=== PATIENT | female | born 1965 | race Caucasian/White ===

== ENCOUNTER 2017-11-05 00:11 | Emergency (ER) | payer SELFPAY ==
--- NOTE | 2017-11-05 00:34 | ED Physician Documentation ---
History of Present Illness - Stated complaint Stated Complaint: L/R LEG REDNESS - Chief complaint Chief Complaint: Wound - History obtained from History obtained from: Patient - History of Present Illness Timing: Yesterday Pain level now: 4 Improved by: pain, swelling ameliorated by rest, elevating legs Worsened by: pain and swelling are worse with standing - Additonal information Additional information: c/o BLE rash since yesterday, significantly worse on LLE. there is associated swelling, and the rash is painful. She says she has had similar, milder episodes in the past which she says were "prickly heat". Review of Systems Constitutional: denies: Fever, Chills, Sweats Skin: reports: Rash Musculoskeletal: reports: Extremity swelling PD PAST MEDICAL HISTORY - Past Medical History Past Medical History: Yes Respiratory: Asthma - Past Surgical History Past Surgical History: No - Present Medications Home Medications: Ambulatory Orders Medication Instructions Recorded Confirmed Albuterol [Ventolin Hfa] 2 puffs INH Q4H PRN 08/26/13 08/26/13 Budesonide/Formoterol 160/4.5 1 puffs INH BID 08/26/13 08/26/13 [Symbicort] Budesonide/Formoterol Fumarate 2 puffs IH BID #1 hfa.aer.ad 08/26/13 [Symbicort 160-4.5 Mcg Inhaler] predniSONE [Deltasone] 60 mg PO DAILY 5 Days tablet 08/26/13 Clindamycin HCl [Clindamycin 300MG 300 mg PO QID #27 capsule 11/05/17 CAP] - Allergies Allergies/Adverse Reactions: Allergies Allergy/AdvReac Type Severity Reaction Status Date / Time Penicillins AdvReac Unknown Verified 11/05/17 00:21 - Social History Does the pt smoke?: No Smoking Status: Never smoker Does the pt drink ETOH?: No Does the pt have substance abuse?: No - Immunizations Immunizations are current?: Yes - POLST Patient has POLST: No PD ED PE NORMAL - Vitals Vital signs reviewed: Yes - General General: Alert and oriented X 3, No acute distress, Well developed/nourished PD ED PE EXPANDED - Extremities ROBERTO LE visual: 1 - rash (maulopapular erythema with large areas of confluence; hot to touch, swelling, blanches to pressure), swelling 2 - rash (patchy, flat erythematous exanthem without abnormal heat to touch, does not ton) Results - Vitals Vitals: Vital Signs - 24 hr 11/05/17 11/05/17 00:14 01:09 Temperature 36.3 C L Heart Rate 95 82 Respiratory 18 16 Rate Blood Pressure 112/40 L 132/94 H O2 Saturation 100 95 Oxygen O2 Source Room air PD MEDICAL DECISION MAKING - ED course Complexity details: considered differential, d/w patient ED course: exanthem s/o miliaria although hot and confluent area on LLE concerning for secondary cellulitis and thus rx abx. to cover possible bacterial cellulitis - Sepsis Event Vital Signs: Vital Signs - 24 hr 11/05/17 11/05/17 00:14 01:09 Temperature 36.3 C L Heart Rate 95 82 Respiratory 18 16 Rate Blood Pressure 112/40 L 132/94 H O2 Saturation 100 95 Oxygen O2 Source Room air Departure - Departure Disposition: 01 Home, Self Care Clinical Impression: Cellulitis, Miliaria Condition: Good Instructions: ED Infec Skin Cellulitis, ED Dermatitis Non Specific Rash Prescriptions: Clindamycin HCl [Clindamycin 300MG CAP] 300 mg PO QID #27 capsule Forms: Activity restrictions Discharge Date/Time: 11/05/17 01:15
[2017-11-05] MEDS ORDERED: CLINDAMYCIN 150 MG CAPSULE PO STA (00:58)
[2017-11-05 01:13] VITALS: BP 132/94
== END 2017-11-05 01:15 | disposition home or self-care (01) ==
LOC: ED 00:11
DX: L74.3 Miliaria, unspecified (principal); L03.116 Cellulitis of left lower limb
CPT/HCPCS: 99283; A9270

== ENCOUNTER 2018-03-30 00:19 | Emergency (ER) | payer SELFPAY ==
--- NOTE | 2018-03-30 00:51 | ED Physician Documentation ---
PD HPI SKIN - Stated complaint Stated Complaint: LT LEG REDNESS - Chief complaint Chief Complaint: Ext Problem - History obtained from History obtained from: Patient - History of Present Illness Timing - onset: Yesterday Timing - details: Gradual onset Pain level now: 4 Location: LLE Quality / character: Burning, Discolored, Raised Associated symptoms: No: Fever Similar symptoms before: Diagnosis (similar to previous cellulitis (which resolved with clindamycin)) Recently seen: Not recently seen - Additional information Additional information: c/o gradual onset LLE redness and swelling without injury, has been rapidly spreading in size. similar episode in the past that was diagnosed as cellulitis and resolved with clindamycin Review of Systems Constitutional: denies: Fever Cardiac: denies: Chest pain / pressure, Pedal edema Respiratory: denies: Dyspnea Skin: reports: Rash PD PAST MEDICAL HISTORY - Past Medical History Respiratory: Asthma - Past Surgical History Past Surgical History: No - Present Medications Home Medications: Ambulatory Orders Medication Instructions Recorded Confirmed Albuterol [Ventolin Hfa] 2 puffs INH Q4H PRN 08/26/13 08/26/13 Budesonide/Formoterol 160/4.5 1 puffs INH BID 08/26/13 08/26/13 [Symbicort] Budesonide/Formoterol Fumarate 2 puffs IH BID #1 hfa.aer.ad 08/26/13 [Symbicort 160-4.5 Mcg Inhaler] predniSONE [Deltasone] 60 mg PO DAILY 5 Days tablet 08/26/13 Clindamycin HCl [Clindamycin 300MG 300 mg PO QID #27 capsule 11/05/17 CAP] Clindamycin HCl [Clindamycin 300MG 300 mg PO Q6H #28 capsule 03/30/18 CAP] - Allergies Allergies/Adverse Reactions: Allergies Allergy/AdvReac Type Severity Reaction Status Date / Time Penicillins AdvReac Unknown Verified 03/30/18 00:30 - Social History Does the pt smoke?: No Smoking Status: Never smoker Does the pt drink ETOH?: No Does the pt have substance abuse?: No - Immunizations Immunizations are current?: Yes - POLST Patient has POLST: No PD ED PE NORMAL - Vitals Vital signs reviewed: Yes - General General: Alert and oriented X 3, No acute distress, Well developed/nourished PD ED PE EXPANDED - Extremities ROBERTO LE visual: 1 - rash (confluent, raised erythema with sharp margins, blanches and is hot to touch) 2 - rash (raised, erythematous rash with sharp margins; this is contiguous with the other area labelled "1") Results - Vitals Vitals: Vital Signs - 24 hr 03/30/18 03/30/18 00:28 01:01 Temperature 36.8 C Heart Rate 89 Respiratory 17 Rate Blood Pressure 148/104 H 150/93 H O2 Saturation 100 Oxygen O2 Source Room air PD MEDICAL DECISION MAKING - ED course Complexity details: reviewed old records, considered differential, d/w patient Departure - Departure Disposition: 01 Home, Self Care Clinical Impression: Cellulitis Qualifiers: Site of cellulitis: extremity Site of cellulitis of extremity: lower extremity Laterality: left Qualified Code(s): L03.116 - Cellulitis of left lower limb Condition: Good Instructions: ED Infec Skin Cellulitis Follow-Up: [facility] [Provider Group] - Within 1 week [facility] [Provider Group] Prescriptions: Clindamycin HCl [Clindamycin 300MG CAP] 300 mg PO Q6H #28 capsule Discharge Date/Time: 03/30/18 01:05
[2018-03-30] MEDS ORDERED: CLINDAMYCIN 150 MG CAPSULE PO STA (00:56)
[2018-03-30 01:02] VITALS: BP 150/93
== END 2018-03-30 01:05 | disposition home or self-care (01) ==
LOC: ED 00:19
DX: L03.116 Cellulitis of left lower limb (principal)
CPT/HCPCS: 99283; A9270

== ENCOUNTER 2018-05-19 01:25 | Emergency (ER) | payer OTHER ==
--- NOTE | 2018-05-19 01:30 | ED Physician Documentation ---
History of Present Illness - Stated complaint Stated Complaint: LT LEG REDNESS,SWELLING - History obtained from History obtained from: Patient - History of Present Illness Timing: Other ("about a year" (per patient)) Pain level now: 5 Improved by: no ameliorating factors Worsened by: no exacerbating factors, but tender to touch - Additonal information Additional information: c/o left leg erythema, swelling, tenderness. She says this has been ongoing for nearly one year, and this is her third [facility] ED visit in past 7 months for same; however, she says there was improvement with antibiotics that were prescribed on previous visits. She has not seen a doctor (besides ED physicians) for this, citing lack of insurance. However, she says she just got her insurance card yesterday and intends to start making arrangements to establish with an outpatient PMD in the morning. 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 : None HEENT: None Psych: None Musculoskeletal: None Derm: None - Past Surgical History Past Surgical History: No - Present Medications Home Medications: Ambulatory Orders Medication Instructions Recorded Confirmed Albuterol [Ventolin Hfa] 2 puffs INH Q4H PRN 08/26/13 08/26/13 Budesonide/Formoterol 160/4.5 1 puffs INH BID 08/26/13 08/26/13 [Symbicort] Budesonide/Formoterol Fumarate 2 puffs IH BID #1 hfa.aer.ad 08/26/13 [Symbicort 160-4.5 Mcg Inhaler] predniSONE [Deltasone] 60 mg PO DAILY 5 Days tablet 08/26/13 Clindamycin HCl [Clindamycin 300MG 300 mg PO QID #27 capsule 11/05/17 CAP] Clindamycin HCl [Clindamycin 300MG 300 mg PO Q6H #28 capsule 03/30/18 CAP] Cephalexin [Keflex] 500 mg PO Q6H #28 capsule 05/19/18 Sulfamethox/Trimeth 800/160 1 each PO BID #14 tablet 05/19/18 [Bactrim Ds 800/160] - Allergies Allergies/Adverse Reactions: Allergies Allergy/AdvReac Type Severity Reaction Status Date / Time Penicillins AdvReac Unknown Verified 05/19/18 01:32 - Social History Does the pt smoke?: No Smoking Status: Never smoker Does the pt drink ETOH?: No Does the pt have substance abuse?: No - Immunizations Immunizations are current?: Yes - POLST Patient has POLST: No PD ED PE NORMAL - Vitals Vital signs reviewed: Yes - General General: Alert and oriented X 3, No acute distress, Well developed/nourished PD ED PE EXPANDED - Extremities ROBERTO LE visual: 1 - rash, swelling, tenderness Results - Vitals Vitals: Vital Signs - 24 hr 05/19/18 05/19/18 01:29 03:35 Temperature 36.0 C L Heart Rate 102 H 96 Respiratory 20 20 Rate Blood Pressure 154/96 H 147/88 H O2 Saturation 99 100 Oxygen O2 Source Room air - Rads (name of study) LLE venous doppler Radiology: Prelim report reviewed, See rad report PD MEDICAL DECISION MAKING - ED course Complexity details: reviewed old records, reviewed results, re-evaluated patient, considered differential, d/w patient Departure - Departure Disposition: 01 Home, Self Care Clinical Impression: Cellulitis Condition: Good Instructions: ED Infec Skin Cellulitis Follow-Up: [facility] [Provider Group] [facility] [Provider Group] Prescriptions: Cephalexin [Keflex] 500 mg PO Q6H #28 capsule Sulfamethox/Trimeth 800/160 [Bactrim Ds 800/160] 1 each PO BID #14 tablet Discharge Date/Time: 05/19/18 03:36
--- NOTE | 2018-05-19 02:59 | Ultrasound Report ---
Reason: pain, swelling Procedure Date: 05/19/2018 Accession Number: [id number] / [id number] Procedure: US - Duplex Ext Veins Left CPT Code: FULL RESULT: EXAM: LEFT LOWER EXTREMITY VENOUS ULTRASOUND EXAM DATE: 05/19/2018 02:02 AM. CLINICAL HISTORY: Left leg pain, swelling. COMPARISON: None. TECHNIQUE: Real-time sonographic vascular imaging was performed by the staff air tactical officer through the lower extremity utilizing both color-flow and Doppler spectral analysis. Multiple promotions representative static images were saved for review. FINDINGS: Common Femoral Vein (CFV): Normal. CFV-GSV Junction: Normal. Profunda Femoral Vein (PFV): Normal. Femoral Vein (FV) Prox: Normal. Femoral Vein (FV) Mid: Normal. Femoral Vein (FV) Dist: Normal. Popliteal Vein: Normal. Posterior Tibial Veins: Normal. Peroneal Veins: Normal. Contralateral Right CFV: Normal. Other: Approximately 4 x 1 x 3 cm fluid collection at the left anterolateral knee. No surrounding hyperemia. IMPRESSION: 1. No left leg deep venous thrombosis seen. 2. Approximately 4 x 1 x 3 cm fluid collection at the left anterolateral knee. This is of uncertain significance but does not appear to be an abscess. RADIA
[2018-05-19] MEDS ORDERED: cephALEXin 250 MG CAPSULE PO STA (03:24)
[2018-05-19] MEDS ORDERED: SULFAMETH/TRIMETH DS 800/160 MG TABLET PO STA (03:25)
[2018-05-19 03:36] VITALS: BP 147/88
== END 2018-05-19 03:36 | disposition home or self-care (01) ==
LOC: ED 01:25
DX: L03.116 Cellulitis of left lower limb (principal)
CPT/HCPCS: 93971; 99283; A9270

== ENCOUNTER 2020-02-29 08:00 | Outpatient (CLI) | payer MEDICAID, OTHER ==
[2020-02-29 12:28] LABS: BASOPHILS # (AUTO) 0.1 10^3/uL (0.0-0.1); BASOPHILS % (AUTO) 1.7 %; EOSINOPHILS # (AUTO) 0.5 10^3/uL (0.0-0.7); EOSINOPHILS % (AUTO) 8.3 %; HGB - HEMOGLOBIN 12.7 g/dL (12.0-16.0); LYMPHOCYTES # (AUTO) 1.7 10^3/uL (1.5-3.5); LYMPHOCYTES % (AUTO) 27.1 %; MEAN CORPUSCULAR HEMOGLOBIN 25.6 pg (27.0-31.0); MEAN CORPUSCULAR HGB CONC 31.4 g/dL (32.0-36.0); MEAN CORPUSCULAR VOLUME 81.7 fL (81.0-99.0); MEAN PLATELET VOLUME 9.8 fL (7.9-10.8); MONOCYTES # (AUTO) 0.4 10^3/uL (0.0-1.0); MONOCYTES % (AUTO) 5.5 %; NEUTROPHILS # (AUTO) 3.7 10^3/uL (1.5-6.6); NEUTROPHILS % (AUTO) 57.1 %; PLT - PLATELET COUNT 494 10^3/uL (130-450); RED BLOOD COUNT 4.96 10^6/uL (4.20-5.40); RED CELL DISTRIBUTION WIDTH 14.6 % (12.0-15.0); WHITE BLOOD COUNT 6.4 x10^3/uL (4.8-10.8)
[2020-02-29 13:17] LABS: ALBUMIN 4.1 g/dL (3.2-5.5); ALKALINE PHOSPHATASE 122 IU/L (42-121); ALT ALANINE AMINOTRANSFERASE 15 IU/L (10-60); AST ASPARTATE AMINOTRANSFERASE 16 IU/L (10-42); BILIRUBIN,TOTAL 0.3 mg/dL (0.2-1.0); BUN - BLOOD UREA NITROGEN 16 mg/dL (6-20); CALCIUM 9.4 mg/dL (8.5-10.3); CARBON DIOXIDE - CO2 26 mmol/L (21-32); CHLORIDE 97 mmol/L (101-111); CHOL/HDL RATIO 3.3 (<4.4); CHOLESTEROL 243 mg/dL; CREATININE 0.8 mg/dL (0.4-1.0); GLUCOSE 79 mg/dL (70-100); HDL CHOLESTEROL 73 mg/dL; LDL CHOLESTEROL,CALCULATED 159 mg/dL; LDL/HDL RATIO 2.2 (<4.4); SODIUM 134 mmol/L (135-145); TOTAL PROTEIN 8.1 g/dL (6.7-8.2); VLDL CHOLESTEROL 11 mg/dL
== END 2020-02-29 23:59 | disposition home or self-care (01) ==
LOC: LAB.WCP 08:00
PROVIDERS: ATTEND Nurse Practitioner Family
DX: I10 Essential (primary) hypertension (principal); L03.90 Cellulitis, unspecified; J44.9 Chronic obstructive pulmonary disease, unspecified
CPT/HCPCS: 36415; 80053; 80061; 83721; 84443; 85025

== ENCOUNTER 2020-08-01 09:18 | Outpatient (CLI) | payer MEDICAID | END 2020-08-01 09:19 | disposition critical access hospital (66) | LOC: EMS 09:18 | PROVIDERS: ATTEND Emergency Medicine | DX: R06.2 Wheezing (principal); R05 Cough | CPT/HCPCS: A0425; A0429; A0999 ==

== ENCOUNTER 2020-08-01 09:36 | Emergency (ER) | payer MEDICAID ==
[2020-08-01] MEDS ORDERED: IPRATROPIUM/ALBUTEROL 3 ML NEB INH STA (09:40)
[2020-08-01] MEDS ORDERED: ALBUTEROL NEB 2.5 MG/3 ML INH STA (09:40)
[2020-08-01] MEDS ORDERED: DEXAMETHASONE 10 MG/ML VIAL IV STA (09:40)
[2020-08-01 09:56] LABS: BASOPHILS # (AUTO) 0.1 10^3/uL (0.0-0.1); BASOPHILS % (AUTO) 1.4 %; EOSINOPHILS % (AUTO) 10.5 %; HCT - HEMATOCRIT 47.1 % (37.0-47.0); HGB - HEMOGLOBIN 14.5 g/dL (12.0-16.0); LYMPHOCYTES # (AUTO) 1.6 10^3/uL (1.5-3.5); LYMPHOCYTES % (AUTO) 17.3 %; MEAN CORPUSCULAR HEMOGLOBIN 24.5 pg (27.0-31.0); MEAN CORPUSCULAR HGB CONC 30.8 g/dL (32.0-36.0); MEAN CORPUSCULAR VOLUME 79.7 fL (81.0-99.0); MEAN PLATELET VOLUME 10.2 fL (7.9-10.8); MONOCYTES # (AUTO) 0.7 10^3/uL (0.0-1.0); MONOCYTES % (AUTO) 7.5 %; NEUTROPHILS # (AUTO) 5.9 10^3/uL (1.5-6.6); NEUTROPHILS % (AUTO) 63.1 %; PLT - PLATELET COUNT 368 10^3/uL (130-450); RED BLOOD COUNT 5.91 10^6/uL (4.20-5.40); RED CELL DISTRIBUTION WIDTH 15.7 % (12.0-15.0); WHITE BLOOD COUNT 9.4 x10^3/uL (4.8-10.8)
--- NOTE | 2020-08-01 10:04 | ED Physician Documentation ---
PD HPI DYSPNEA - Stated complaint Stated Complaint: SOA - Chief complaint Chief Complaint: Resp - History obtained from History obtained from: Patient - Additional information Additional information: Patient comes emergency department chief complaint of dyspnea/asthma exacerbation. The patient has a history of COPD and asthma, and has been out of both her nebs and her inhaler for several weeks. She states for the last 2 weeks, she is felt more short of breath and wheezy, but has not had any productive cough or fevers. However, she states that last night, things seemed to be getting worse and by this morning, she was having a very difficult time breathing. Medics picked her up and gave her a DuoNeb in route, which has improved the patient's clinical situation significantly. Her pulse ox is 94% on room air currently per medics. Patient states she feels little better but still tight. She denies feeling "sick" with anything. No known sick contacts. Patient has no cardiac issues that she knows of. No swelling in her legs. No other complaints at this time Review of Systems Ten Systems: 10 systems reviewed and negative Constitutional: reports: Reviewed and negative Eyes: reports: Reviewed and negative Ears: reports: Reviewed and negative Nose: reports: Reviewed and negative Throat: reports: Reviewed and negative Cardiac: reports: Reviewed and negative Respiratory: reports: Dyspnea, Wheezing GI: reports: Reviewed and negative : reports: Reviewed and negative Skin: reports: Reviewed and negative Musculoskeletal: reports: Reviewed and negative Neurologic: reports: Reviewed and negative Psychiatric: reports: Reviewed and negative Endocrine: reports: Reviewed and negative Immunocompromised: reports: Reviewed and negative PD PAST MEDICAL HISTORY - Past Medical History Past Medical History: Yes Respiratory: Asthma Neuro: None 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 : None HEENT: None Psych: None Musculoskeletal: None Derm: None - Past Surgical History Past Surgical History: No - Present Medications Home Medications: Ambulatory Orders Medication Instructions Recorded Confirmed Albuterol [Ventolin Hfa] 2 puffs INH Q4H PRN 08/26/13 08/26/13 Budesonide/Formoterol 160/4.5 1 puffs INH BID 08/26/13 08/26/13 [Symbicort] Budesonide/Formoterol Fumarate 2 puffs IH BID #1 hfa.aer.ad 08/26/13 [Symbicort 160-4.5 Mcg Inhaler] predniSONE [Deltasone] 60 mg PO DAILY 5 Days tablet 08/26/13 Clindamycin HCl [Clindamycin 300MG 300 mg PO QID #27 capsule 11/05/17 CAP] Clindamycin HCl [Clindamycin 300MG 300 mg PO Q6H #28 capsule 03/30/18 CAP] Sulfamethox/Trimeth 800/160 1 each PO BID #14 tablet 05/19/18 [Bactrim Ds 800/160] cephALEXin [Keflex] 500 mg PO Q6H #28 capsule 05/19/18 Albuterol Sulf [Ventolin Hfa 2 puffs INH Q4HR PRN #1 inhaler 08/01/20 Inhaler] Fluticasone Propionate [Flovent 250 mcg IH BID #1 08/01/20 Diskus] Ipratropium/Albuterol [Duoneb] 3 ml INH Q6H PRN #50 ml 08/01/20 predniSONE [Deltasone] 60 mg PO DAILY 5 Days #15 tablet 08/01/20 - Allergies Allergies/Adverse Reactions: Allergies Allergy/AdvReac Type Severity Reaction Status Date / Time Penicillins AdvReac Unknown Verified 08/01/20 09:59 - Social History Does the pt smoke?: No Smoking Status: Never smoker Does the pt drink ETOH?: Yes Does the pt have substance abuse?: Yes Substance Use and Type: Marijuana - Immunizations Immunizations are current?: No - POLST Patient has POLST: No PD ED PE NORMAL - Vitals Vital signs reviewed: Yes - General General: Alert and oriented X 3, Well developed/nourished, Other (moderate respiratory distress) - HEENT HEENT: Atraumatic, PERRL, EOMI, Moist mucous membranes - Neck Neck: Supple, no meningeal sign - Cardiac Cardiac: RRR, No murmur, Strong equal pulses - Respiratory Respiratory: Other (Moderate respiratory distress, with prolonged expiratory phase and patient speaking in Partial sentences at a time. Moderate expiratory wheezes and rhonchi with decreased air movement throughout diffuse lung sauer bilaterally.) - Abdomen Abdomen: Soft, Non tender, Non distended - Derm Derm: Normal color, Warm and dry, No rash - Extremities Extremities: No deformity, No edema, No calf tenderness / cord - Neuro Neuro: Alert and oriented X 3, salesperson men's hats 2-12 intact, No motor deficit, No sensory deficit, Normal speech - Psych Psych: Normal mood, Normal affect Results - Vitals Vitals: Vital Signs - 24 hr 08/01/20 08/01/20 08/01/20 09:37 09:51 09:59 Temperature 36.7 C Heart Rate 103 H 107 H 100 Respiratory 32 H 28 H 19 Rate Blood Pressure 166/101 H 129/80 150/81 H O2 Saturation 92 94 96 08/01/20 08/01/20 08/01/20 10:15 10:41 11:20 Temperature Heart Rate 106 H 105 H 105 H Respiratory 16 23 20 Rate Blood Pressure 153/76 H 159/84 H O2 Saturation 99 94 08/01/20 11:21 Temperature 36.8 C Heart Rate Respiratory Rate Blood Pressure O2 Saturation Oxygen O2 Source Room air - Labs Labs: Laboratory Tests 08/01/20 08/01/20 09:54 09:54 WBC 9.4 RBC 5.91 H Hgb 14.5 Hct 47.1 H MCV 79.7 L MCH 24.5 L MCHC 30.8 L RDW 15.7 H Plt Count 368 MPV 10.2 Neut # (Auto) 5.9 Lymph # (Auto) 1.6 Beauregard # (Auto) 0.7 Eos # (Auto) 1.0 H Baso # (Auto) 0.1 Absolute Nucleated RBC 0.00 Nucleated RBC % 0.0 Sodium 136 Potassium 4.1 Chloride 100 L Carbon Dioxide 24 Anion Gap 12.0 BUN 14 Creatinine 0.8 Estimated GFR (MDRD) 75 L Glucose 110 H Calcium 9.3 Total Bilirubin 0.6 AST 15 ALT 14 Alkaline Phosphatase 85 Total Protein 7.5 Albumin 4.0 Globulin 3.5 Albumin/Globulin Ratio 1.1 Lipase 27 PD MEDICAL DECISION MAKING - ED course Complexity details: reviewed old records, reviewed results, re-evaluated patient, considered differential, d/w patient ED course: The patient had received a DuoNeb in route which had improved her situation somewhat, but she was still quite tight and wheezy, and I felt she should be treated with further nebs. I ordered DuoNeb +2 albuterol nebs and IV steroids. The patient was reevaluated after treatment and found to be feeling very much better. She still had some expiratory wheezes but had good air movement, and was able to speak comfortably in full sentences. Patient was given a prescription for all of the medications she has run out of, as well as for a course of steroids. We have discussed the usual indications for return. Departure - Departure Disposition: 01 Home, Self Care Clinical Impression: Asthma exacerbation with COPD (chronic obstructive pulmonary disease) Condition: Stable Instructions: ED Reactive Airway Disease Prescriptions: Albuterol Sulf [Ventolin Hfa Inhaler] 2 puffs INH Q4HR PRN #1 inhaler PRN Reason: Shortness Of Air/Wheezing predniSONE [Deltasone] 60 mg PO DAILY 5 Days #15 tablet Ipratropium/Albuterol [Duoneb] 3 ml INH Q6H PRN #50 ml PRN Reason: Dyspnea Fluticasone Propionate [Flovent Diskus] 250 mcg IH BID #1 Discharge Date/Time: 08/01/20 11:26
[2020-08-01 10:44] LABS: ALBUMIN/GLOBULIN RATIO 1.1 (1.0-2.2); BILIRUBIN,TOTAL 0.6 mg/dL (0.2-1.0); CALCIUM 9.3 mg/dL (8.5-10.3); CREATININE 0.8 mg/dL (0.4-1.0); POTASSIUM 4.1 mmol/L (3.5-5.0); TOTAL PROTEIN 7.5 g/dL (6.7-8.2)
[2020-08-01 11:20] VITALS: BP 159/84
== END 2020-08-01 11:26 | disposition home or self-care (01) ==
LOC: EDUNIT# → ED 09:36
DX: J44.1 Chronic obstructive pulmonary disease with (acute) exacerbation (principal)
CPT/HCPCS: 36415; 80053; 83690; 85025; 94640; 96374; 99284

== ENCOUNTER 2020-10-30 15:22 | Outpatient (CLI) | payer MEDICAID | END 2020-10-30 23:59 | disposition home or self-care (01) | LOC: LAB.N 15:22 | PROVIDERS: ATTEND Nurse Practitioner | DX: R05 Cough (principal); Z20.822 Contact with and (suspected) exposure to COVID-19 ==

== ENCOUNTER 2020-11-25 23:20 | Outpatient (CLI) | payer MEDICAID | END 2020-11-25 23:21 | disposition EMS.NT | LOC: EMS 23:20 | DX: R06.00 Dyspnea, unspecified (principal) ==

== ENCOUNTER 2021-07-25 12:46 | Outpatient (CLI) | payer MEDICAID ==
--- NOTE | 2021-07-26 09:35 | Mammography Report ---
BILATERAL DIGITAL SCREENING MAMMOGRAM 3D/2D: 07/25/2021 CLINICAL: Routine screening. No prior exams were available for comparison. There are scattered fibroglandular elements in both br easts. No significant masses, calcifications, or other findings are seen in either breast. IMPRESSION: NEGATIVE There is no mammographic evidence of malignancy. A 1 year screening mammogram is recommended. This exam was interpreted at Station ID: [id number]. NOTE: For mammograms, a report in lay terms will be sent to the patient. Approximately 15% of breast malignancies will not be visualized mammographically. In the management of a palpable breast mass, a negative mammogram must not discourage biopsy of a clinically suspicious lesion. Electronically Signed By: Moiz mon/penrad:07/25/2021 14:05:11 ACR BI-RADS Category 1: Negative 3341F PARENCHYMAL PATTERN: (A) - The breast(s) demonstrate(s) scattered fibroglandular densities. BI-RADS CATEGORY: (1) - 1 RECOMMENDATION: (ANNUAL) - Recommend routine annual screening mammography. [id number] 1 year screening LATERALITY: (B)
== END 2021-07-25 12:47 | disposition home or self-care (01) ==
LOC: DI.N 12:46
PROVIDERS: ATTEND Family Medicine
DX: Z12.31 Encounter for screening mammogram for malignant neoplasm of breast (principal)

== ENCOUNTER 2022-04-23 13:27 | Emergency (ER) | payer MEDICAID ==
[2022-04-23] MEDS ORDERED: SULFAMETH/TRIMETH DS 800/160 MG TABLET PO STA (17:50)
[2022-04-23] MEDS ORDERED: LIDOCAINE 1% 2 ML VIAL MC ONE (17:50)
[2022-04-23] MEDS ORDERED: oxyCODONE 5 MG TABLET PO STA (17:50)
[2022-04-23] MEDS ORDERED: cefTRIAXone 1 GM VIAL IM STA (17:50)
--- NOTE | 2022-04-23 17:52 | ED Physician Documentation ---
History of Present Illness - Stated complaint Stated Complaint: LT LEG SWOLLEN - Chief complaint Chief Complaint: Ext Problem - History obtained from History obtained from: Patient, Family - History of Present Illness Timing: How many days ago (several days) Pain level max: 5 Pain level now: 5 - Additonal information Additional information: Patient is a 57-year-old female who presents to the emergency department with redness and swelling to the left leg. Ongoing for the past several days. Feels similar to prior episodes of cellulitis. No fevers. No chills. Worse with palpation and movement. Better with rest. Does not recall any injury. She has poor circulation in all of her extremities. She states that this is a chronic ongoing issue. 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 : None HEENT: None Psych: None Musculoskeletal: None Derm: None - Past Surgical History Past Surgical History: No - Present Medications Home Medications: Ambulatory Orders Medication Instructions Recorded Confirmed Albuterol [Ventolin Hfa] 2 puffs INH Q4H PRN 08/26/13 08/26/13 Budesonide/Formoterol 160/4.5 1 puffs INH BID 08/26/13 08/26/13 [Symbicort] Budesonide/Formoterol Fumarate 2 puffs IH BID #1 hfa.aer.ad 08/26/13 [Symbicort 160-4.5 Mcg Inhaler] predniSONE [Deltasone] 60 mg PO DAILY 5 Days tablet 08/26/13 Clindamycin HCl [Clindamycin 300MG 300 mg PO QID #27 capsule 11/05/17 CAP] Clindamycin HCl [Clindamycin 300MG 300 mg PO Q6H #28 capsule 03/30/18 CAP] Sulfamethox/Trimeth 800/160 1 each PO BID #14 tablet 05/19/18 [Bactrim Ds 800/160] cephALEXin [Keflex] 500 mg PO Q6H #28 capsule 05/19/18 Albuterol Sulf [Ventolin Hfa 2 puffs INH Q4HR PRN #1 inhaler 08/01/20 Inhaler] Fluticasone Propionate [Flovent 250 mcg IH BID #1 08/01/20 Diskus] Ipratropium/Albuterol [Duoneb] 3 ml INH Q6H PRN #50 ml 08/01/20 predniSONE [Deltasone] 60 mg PO DAILY 5 Days #15 tablet 08/01/20 Oxycodone HCl/Acetaminophen 1 - 2 each PO Q6H PRN #10 tablet 04/23/22 [Percocet 5-325 mg Tablet] MDD 6 tabs Sulfamethox/Trimeth 800/160 1 each PO BID #20 tablet 04/23/22 [Bactrim Ds 800/160] cephALEXin [Keflex] 500 mg PO Q6H #40 cap 04/23/22 - Allergies Allergies/Adverse Reactions: Allergies Allergy/AdvReac Type Severity Reaction Status Date / Time Penicillins AdvReac Unknown Verified 04/23/22 13:46 - Social History Does the pt smoke?: No Smoking Status: Never smoker Does the pt drink ETOH?: Yes Does the pt have substance abuse?: Yes - Immunizations Immunizations are current?: No - POLST Patient has POLST: No PD ED PE NORMAL - Vitals Vital signs reviewed: Yes - General General: Alert and oriented X 3, No acute distress, Well developed/nourished - HEENT HEENT: Moist mucous membranes - Neck Neck: Supple, no meningeal sign - Cardiac Cardiac: RRR, No murmur, Strong equal pulses - Respiratory Respiratory: No respiratory distress, Clear bilaterally - Abdomen Abdomen: Soft, Non tender, Non distended - Derm Derm: Warm and dry - Extremities Extremities: Other (Left lower extremity - There is mottling throughout the extremity, this is similar to the right leg. Patient states that that is chronic. She does have an area of cellulitis to the left upper thigh approximately 15 x 15 cm. Light pink in color. No crepitus. No abscess. Not circumferential.) - Neuro Neuro: Alert and oriented X 3 - Psych Psych: Normal mood, Normal affect Results - Vitals Vitals: Vital Signs - 24 hr 04/23/22 04/23/22 13:43 18:08 Temperature 36.9 C Heart Rate 102 H 98 Respiratory 18 18 Rate Blood Pressure 98/67 122/68 O2 Saturation 97 98 Oxygen O2 Source Room air PD MEDICAL DECISION MAKING - ED course Complexity details: considered differential, d/w patient, d/w family ED course: Patient with a left lower extremity cellulitis. Given Rocephin and Bactrim here. We will place her on oral antibiotics for home and see how she progresses over the next 24 hours. She is very well-appearing, nontoxic. Exam is not consistent with necrotizing fasciitis at this time. No indication for inpatient admission at this time. Patient counseled regarding signs and symptoms for which I believe and urgent re-evaluation would be necessary. Patient with good understanding of and agreement to plan and is comfortable going home at this time This document was made in part using voice recognition software. While efforts are made to proofread this document, sound alike and grammatical errors may occur. Departure - Departure Disposition: 01 Home, Self Care Clinical Impression: Cellulitis Qualifiers: Site of cellulitis: extremity Site of cellulitis of extremity: lower extremity Laterality: left Qualified Code(s): L03.116 - Cellulitis of left lower limb Condition: Good Instructions: ED Infec Skin Cellulitis Follow-Up: Yousif Marino MD [Primary Care Provider] - Within 3 Days Prescriptions: Sulfamethox/Trimeth 800/160 [Bactrim Ds 800/160] 1 each PO BID #20 tablet cephALEXin [Keflex] 500 mg PO Q6H #40 cap Oxycodone HCl/Acetaminophen [Percocet 5-325 mg Tablet] 1 - 2 each PO Q6H PRN #10 tablet MDD 6 tabs PRN Reason: pain Comments: [facility] [place]. Please return if you worsen including worsening redness, pain, fevers or other new or worrisome symptoms. You should start to notice improvement within 12 to 24 hours. Please take all antibiotics until gone. I am prescribing a short course of narcotic pain medication for you. These are potentially dangerous and addictive medications that should be used carefully. These medications may constipate you. Take an [id number] stool softener (docusate) twice daily with plenty of water while taking these medications. If you go 24 hours without a bowel movement, take [id number] miralax, per package instructions. Do not drink or drive while taking these medications. If you received narcotic or sedating medications while in the emergency department, do not drive for 24 hours. Store this medication in a safe, secure place and out of reach of children. It is a violation of federal law to give or sell this medication to another person or to use in a manner other than prescribed. The ED will not refill narcotic prescriptions, including prescriptions lost or stolen. To dispose of unwanted medications: 1. [facility] [address] in [place] has a medication drop box. They accept prescription medications (in pill form) Thursday through Thursday 9:00 a.m. to 5:00 p.m. 2. The [facility] accepts prescription medications (in pill form only) for disposal year round. Call for more information. 3. Contact the [facility] for the next [facility] sponsored prescription drug collection event. , [phone], or [phone]; Discharge Date/Time: 04/23/22 18:10
[2022-04-23 18:09] VITALS: BP 122/68
== END 2022-04-23 18:10 | disposition home or self-care (01) ==
LOC: ED 13:27
DX: L03.116 Cellulitis of left lower limb (principal)
CPT/HCPCS: 20552; 99283; 99284; A9270

== ENCOUNTER 2022-08-01 09:08 | Outpatient (CLI) | payer MEDICAID ==
[2022-08-01 12:17] LABS: BASOPHILS # (AUTO) 0.1 10^3/uL (0.0-0.1); BASOPHILS % (AUTO) 1.3 %; EOSINOPHILS # (AUTO) 0.3 10^3/uL (0.0-0.7); EOSINOPHILS % (AUTO) 5.8 %; HCT - HEMATOCRIT 43.8 % (37.0-47.0); HGB - HEMOGLOBIN 13.1 g/dL (12.0-16.0); LYMPHOCYTES # (AUTO) 1.3 10^3/uL (1.5-3.5); LYMPHOCYTES % (AUTO) 22.6 %; MEAN CORPUSCULAR HEMOGLOBIN 25.8 pg (27.0-31.0); MEAN CORPUSCULAR HGB CONC 29.9 g/dL (32.0-36.0); MEAN CORPUSCULAR VOLUME 86.4 fL (81.0-99.0); MEAN PLATELET VOLUME 11.3 fL (7.9-10.8); MONOCYTES # (AUTO) 0.5 10^3/uL (0.0-1.0); MONOCYTES % (AUTO) 8.5 %; NEUTROPHILS # (AUTO) 3.4 10^3/uL (1.5-6.6); NEUTROPHILS % (AUTO) 61.6 %; PLT - PLATELET COUNT 338 10^3/uL (130-450); RED BLOOD COUNT 5.07 10^6/uL (4.20-5.40); RED CELL DISTRIBUTION WIDTH 14.5 % (12.0-15.0); WHITE BLOOD COUNT 5.5 x10^3/uL (4.8-10.8)
[2022-08-01 13:26] LABS: ALBUMIN 3.9 g/dL (3.2-5.5); ALBUMIN/GLOBULIN RATIO 1.2 (1.0-2.2); ALKALINE PHOSPHATASE 88 IU/L (42-121); ALT ALANINE AMINOTRANSFERASE 18 IU/L (10-60); AST ASPARTATE AMINOTRANSFERASE 21 IU/L (10-42); BILIRUBIN,TOTAL 0.5 mg/dL (0.2-1.0); BUN - BLOOD UREA NITROGEN 13 mg/dL (6-20); CALCIUM 8.7 mg/dL (8.5-10.3); CARBON DIOXIDE - CO2 24 mmol/L (21-32); CHLORIDE 105 mmol/L (101-111); CHOL/HDL RATIO 2.8 (<4.4); CHOLESTEROL 201 mg/dL; CREATININE 0.8 mg/dL (0.4-1.0); GFR - MDRD 74 (>89); GLUCOSE 110 mg/dL (70-100); HDL CHOLESTEROL 73 mg/dL; LDL CHOLESTEROL,CALCULATED 112 mg/dL; LDL/HDL RATIO 1.5 (<4.4); POTASSIUM 3.6 mmol/L (3.5-5.0); SODIUM 137 mmol/L (135-145); TOTAL PROTEIN 7.2 g/dL (6.7-8.2); TRIGLYCERIDES 81 mg/dL; VLDL CHOLESTEROL 16 mg/dL
[2022-08-01 13:32] LABS: THYROID STIMULATING HORMONE 3.26 uIU/mL (0.34-5.60)
== END 2022-08-01 09:09 | disposition home or self-care (01) ==
LOC: LAB.N 09:08
PROVIDERS: ATTEND Family Medicine
DX: I10 Essential (primary) hypertension (principal); J44.9 Chronic obstructive pulmonary disease, unspecified; E66.9 Obesity, unspecified; L03.90 Cellulitis, unspecified
CPT/HCPCS: 36415; 80050; 80061; 83721

== ENCOUNTER 2023-02-19 21:17 | Outpatient (CLI) | payer MEDICAID | END 2023-02-19 23:59 | disposition critical access hospital (66) | LOC: EMS 21:17 | DX: R55 Syncope and collapse (principal); R40.4 Transient alteration of awareness; M54.2 Cervicalgia; W18.30XA Fall on same level, unspecified, initial encounter; Y92.511 Restaurant or cafe as the place of occurrence of the external cause; Y99.0 Civilian activity done for income or pay | CPT/HCPCS: A0425; A0429; A0999 ==

== ENCOUNTER 2023-02-19 21:43 | Emergency (ER) | payer OTHER, MEDICAID ==
[2023-02-19] MEDS ORDERED: ONDANSETRON 4 MG/2 ML VIAL IVP STA (22:03)
[2023-02-19] MEDS ORDERED: MORPHINE 2 MG/ML CARPUJECT IVP STA (22:03)
--- NOTE | 2023-02-19 22:14 | ED Physician Documentation ---
History of Present Illness - Stated complaint Stated Complaint: FELL, LOC, STIFF NECK - Chief complaint Chief Complaint: Neuro - Additonal information Additional information: Patient 58-year-old female presenting via EMS after syncopal episode that occurred earlier this evening. Initially endorsed for head and neck pain. Reports was at work when she had a coughing fit, subsequently passed out. Denied any chest pain or shortness of breath associated with the event. Does report a history of COPD. States she was an ex-smoker who quit all tobacco products in 2007. Continues to use marijuana regularly. Current medications include Advair, montelukast, lisinopril. 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 : None HEENT: None Psych: None Musculoskeletal: None Derm: None - Past Surgical History Past Surgical History: No - Present Medications Home Medications: Ambulatory Orders Medication Instructions Recorded Confirmed Albuterol [Ventolin Hfa] 2 puffs INH Q4H PRN 08/26/13 08/26/13 Budesonide/Formoterol 160/4.5 1 puffs INH BID 08/26/13 08/26/13 [Symbicort] Budesonide/Formoterol Fumarate 2 puffs IH BID #1 hfa.aer.ad 08/26/13 [Symbicort 160-4.5 Mcg Inhaler] predniSONE [Deltasone] 60 mg PO DAILY 5 Days tablet 08/26/13 Clindamycin HCl [Clindamycin 300MG 300 mg PO QID #27 capsule 11/05/17 CAP] Clindamycin HCl [Clindamycin 300MG 300 mg PO Q6H #28 capsule 03/30/18 CAP] Sulfamethox/Trimeth 800/160 1 each PO BID #14 tablet 05/19/18 [Bactrim Ds 800/160] cephALEXin [Keflex] 500 mg PO Q6H #28 capsule 05/19/18 Albuterol Sulf [Ventolin Hfa 2 puffs INH Q4HR PRN #1 inhaler 08/01/20 Inhaler] Fluticasone Propionate [Flovent 250 mcg IH BID #1 08/01/20 Diskus] Ipratropium/Albuterol [Duoneb] 3 ml INH Q6H PRN #50 ml 08/01/20 predniSONE [Deltasone] 60 mg PO DAILY 5 Days #15 tablet 08/01/20 Oxycodone HCl/Acetaminophen 1 - 2 each PO Q6H PRN #10 tablet 04/23/22 [Percocet 5-325 mg Tablet] MDD 6 tabs Sulfamethox/Trimeth 800/160 1 each PO BID #20 tablet 04/23/22 [Bactrim Ds 800/160] cephALEXin [Keflex] 500 mg PO Q6H #40 cap 04/23/22 - Allergies Allergies/Adverse Reactions: Allergies Allergy/AdvReac Type Severity Reaction Status Date / Time Penicillins AdvReac Unknown Verified 02/19/23 22:09 - Social History Does the pt smoke?: No Smoking Status: Never smoker Does the pt drink ETOH?: Yes Does the pt have substance abuse?: Yes - Immunizations Immunizations are current?: No - POLST Patient has POLST: No PD ED PE NORMAL - Vitals Vital signs reviewed: Yes - General General: Alert and oriented X 3, No acute distress, Well developed/nourished, Other - HEENT HEENT: Atraumatic, PERRL, EOMI, Ears normal, Moist mucous membranes, Pharynx benign - Neck Neck: Supple, no meningeal sign, No bony TTP, No adenopathy, No JVD - Cardiac Cardiac: RRR - Respiratory Respiratory: No respiratory distress, Clear bilaterally - Abdomen Abdomen: Normal bowel sounds - Female Female : Deferred - Rectal Rectal: Deferred - Back Back: No CVA TTP - Derm Derm: Normal color - Extremities Extremities: No deformity - Neuro Neuro: Alert and oriented X 3, 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 Relevant findings are: Sinus rhythm with rate 86 bpm. Normal axis. Normal [place], QRS, QTc intervals. No ST segment elevations or T wave inversions. - Labs Labs: Laboratory Tests 02/19/23 02/19/23 22:37 22:37 WBC 9.0 RBC 5.06 Hgb 13.3 Hct 43.7 MCV 86.4 MCH 26.3 L MCHC 30.4 L RDW 13.8 Plt Count 340 MPV 10.1 Neut # (Auto) 6.4 Lymph # (Auto) 1.7 [place] # (Auto) 0.5 Eos # (Auto) 0.3 Baso # (Auto) 0.1 Absolute Nucleated RBC 0.00 Nucleated RBC % 0.0 Sodium 137 Potassium 4.3 Chloride 102 Carbon Dioxide 25 Anion Gap 10.0 BUN 29 H Creatinine 1.4 H Estimated GFR (MDRD) 39 L Glucose 89 Calcium 9.8 Total Bilirubin 0.3 AST 15 ALT 17 Alkaline Phosphatase 109 Troponin I High Sens 4.7 Total Protein 7.6 Albumin 4.6 Globulin 3.0 Albumin/Globulin Ratio 1.5 Lipase 41 PD Medical Decision Making - ED course Complexity details: re-evaluated patient, considered differential, d/w patient ED course: Patient 58-year-old female presenting to the emergency department with head and neck pain after syncopal episode that occurred earlier today. This is in the setting of known history of COPD. Patient reported that she had a coughing fit and subsequently syncopized striking the back of her head. Denies use of blood thinning medications. Afebrile, hemodynamic stable on arrival to the emergency department. Patient did not tolerate c-collar provided by EMS. Initially she reported that she wished to leave the emergency department without testing and paperwork was provided to this effect however she changed her mind prior to discharge. CT head and C-spine did not show any acute traumatic injury although there were age-related changes to her spine. Her labs are similarly reassuring. We will discharge with a short course of muscle relaxer and encourage follow-up with primary care. Departure - Departure Disposition: 01 Home, Self Care Clinical Impression: Neck pain, Elevated serum creatinine Syncope Qualifiers: Syncope type: unspecified Qualified Code(s): R55 - Syncope and collapse Instructions: ED Fainting Unkn Cause Comments: Thank you for allowing us the opportunity to care for you today [facility]. Today in the emergency department your evaluated for any possible life- threatening medical emergency. Your EKG, blood work and the CT scans of her head and neck are reassuring. I do not see any dangerous or life-threatening injury or abnormality at this time. You will want to follow-up with your primary care doctor For reevaluation in the next few days. Otherwise I recommend drinking plenty of fluid and getting plenty of rest. If it anytime you have new or worsening symptoms please not hesitate to return. Forms: PCP List
[2023-02-19 22:40] LABS: BASOPHILS # (AUTO) 0.1 10^3/uL (0.0-0.1); BASOPHILS % (AUTO) 0.9 %; EOSINOPHILS # (AUTO) 0.3 10^3/uL (0.0-0.7); EOSINOPHILS % (AUTO) 2.8 %; HCT - HEMATOCRIT 43.7 % (37.0-47.0); HGB - HEMOGLOBIN 13.3 g/dL (12.0-16.0); LYMPHOCYTES # (AUTO) 1.7 10^3/uL (1.5-3.5); LYMPHOCYTES % (AUTO) 19.3 %; MEAN CORPUSCULAR HEMOGLOBIN 26.3 pg (27.0-31.0); MEAN CORPUSCULAR HGB CONC 30.4 g/dL (32.0-36.0); MEAN CORPUSCULAR VOLUME 86.4 fL (81.0-99.0); MEAN PLATELET VOLUME 10.1 fL (7.9-10.8); MONOCYTES # (AUTO) 0.5 10^3/uL (0.0-1.0); MONOCYTES % (AUTO) 5.4 %; NEUTROPHILS # (AUTO) 6.4 10^3/uL (1.5-6.6); NEUTROPHILS % (AUTO) 71.4 %; PLT - PLATELET COUNT 340 10^3/uL (130-450); RED BLOOD COUNT 5.06 10^6/uL (4.20-5.40); RED CELL DISTRIBUTION WIDTH 13.8 % (12.0-15.0)
[2023-02-19 22:59] LABS: ALBUMIN 4.6 g/dL (3.2-5.5); ALBUMIN/GLOBULIN RATIO 1.5 (1.0-2.2); BILIRUBIN,TOTAL 0.3 mg/dL (0.2-1.0); CALCIUM 9.8 mg/dL (8.5-10.3); CREATININE 1.4 mg/dL (0.6-1.3); POTASSIUM 4.3 mmol/L (3.5-4.5); TOTAL PROTEIN 7.6 g/dL (6.4-8.9)
[2023-02-19 23:21] LABS: TROPONIN I HIGH SENSITIVITY 4.7 ng/L (2.3-14.8)
--- NOTE | 2023-02-20 00:50 | CT Report ---
PROCEDURE: HEAD WO INDICATIONS: Trauma TECHNIQUE: Noncontrast 4.5 mm thick angled axial sections acquired from the foramen magnum to the vertex. For r adiation dose reduction, the following was used: automated exposure control, adjustment of mA and/or kV according to patient size. COMPARISON: None. FINDINGS: Image quality: Good CSF spaces: Basal cisterns are patent. Lateral ventricles are symmetric. Volume: Mild volume loss Brain: No intracranial hemorrhage. Rogers-white differentiation is grossly maintained. Craniofacial structures: Hypoplastic mastoid air cells. No significant paranasal sinus opacification. IMPRESSION: No acute intracranial abnormality. Reviewed by: Oliver Maradiaga MD on 02/20/2023 12:49 AM PDT Approved by: Oliver Maradiaga MD on 02/20/2023 12:49 AM PDT Station ID: [id number]
--- NOTE | 2023-02-20 00:52 | CT Report ---
PROCEDURE: CERVICAL SPINE WO INDICATIONS: Fall, TTP TECHNIQUE: Noncontrast 3 mm thick sections acquired from the skull base to the T4 level. Sagittal and coronal r eformats were then constructed. For radiation dose reduction, the following was used: automated exp osure control, adjustment of mA and/or kV according to patient size. COMPARISON: None. FINDINGS: Image quality: Good Bones: Hypertrophic degenerative changes at C1-C2. Mild to moderate spondylosis elsewhere. Overall st raightening of normal cervical lordosis. No traumatic subluxation identified. No acute vertebral body height loss. Mild endplate deformities are probably chronic. Soft tissues: Prevertebral soft tissues are not thickened. No apical pneumothorax. There are vascular calcifications. IMPRESSION: Mild to moderate degenerative changes. No acute fracture or traumatic subluxation. If there is high c oncern for further derangement, consider MRI evaluation. Reviewed by: Oliver Maradiaga MD on 02/20/2023 12:51 AM PDT Approved by: Oliver Maradiaga MD on 02/20/2023 12:51 AM PDT Station ID: [id number]
[2023-02-20 01:20] VITALS: BP 149/78; O2SAT 98
== END 2023-02-20 01:21 | disposition home or self-care (01) ==
LOC: EDUNIT# → ED 21:43
DX: R55 Syncope and collapse (principal); R94.4 Abnormal results of kidney function studies; M54.2 Cervicalgia; Z87.891 Personal history of nicotine dependence
CPT/HCPCS: 1040M; 36415; 70450; 72125; 80053; 83690; 84484; 85025; 99283; 99284

== ENCOUNTER 2023-03-03 12:10 | Outpatient (CLI) | payer MEDICAID ==
[2023-03-03 17:49] LABS: BASOPHILS # (AUTO) 0.1 10^3/uL (0.0-0.1); BASOPHILS % (AUTO) 1.5 %; EOSINOPHILS # (AUTO) 0.4 10^3/uL (0.0-0.7); EOSINOPHILS % (AUTO) 6.4 %; HCT - HEMATOCRIT 44.3 % (37.0-47.0); HGB - HEMOGLOBIN 13.2 g/dL (12.0-16.0); LYMPHOCYTES # (AUTO) 1.5 10^3/uL (1.5-3.5); LYMPHOCYTES % (AUTO) 24.2 %; MEAN CORPUSCULAR HGB CONC 29.8 g/dL (32.0-36.0); MEAN CORPUSCULAR VOLUME 87.4 fL (81.0-99.0); MEAN PLATELET VOLUME 10.8 fL (7.9-10.8); MONOCYTES # (AUTO) 0.5 10^3/uL (0.0-1.0); MONOCYTES % (AUTO) 7.7 %; NEUTROPHILS # (AUTO) 3.7 10^3/uL (1.5-6.6); NEUTROPHILS % (AUTO) 59.9 %; PLT - PLATELET COUNT 307 10^3/uL (130-450); RED BLOOD COUNT 5.07 10^6/uL (4.20-5.40); WHITE BLOOD COUNT 6.1 x10^3/uL (4.8-10.8)
[2023-03-03 18:03] LABS: ALBUMIN 4.6 g/dL (3.2-5.5); ALBUMIN/GLOBULIN RATIO 1.6 (1.0-2.2); ALKALINE PHOSPHATASE 106 IU/L (42-121); ALT ALANINE AMINOTRANSFERASE 19 IU/L (10-60); AST ASPARTATE AMINOTRANSFERASE 20 IU/L (10-42); BILIRUBIN,TOTAL 0.5 mg/dL (0.2-1.0); BUN - BLOOD UREA NITROGEN 10 mg/dL (6-20); CALCIUM 9.5 mg/dL (8.5-10.3); CARBON DIOXIDE - CO2 29 mmol/L (21-32); CHLORIDE 104 mmol/L (101-111); CREATININE 0.7 mg/dL (0.6-1.3); CRP - C-REACTIVE PROTEIN < 0.5 mg/dL (<0.5); GFR - MDRD 86 (>89); GLUCOSE 68 mg/dL (74-104); POTASSIUM 4.2 mmol/L (3.5-4.5); SODIUM 138 mmol/L (135-145); TOTAL PROTEIN 7.4 g/dL (6.4-8.9)
[2023-03-03 18:15] LABS: THYROID STIMULATING HORMONE 2.57 uIU/mL (0.34-5.60)
== END 2023-03-03 12:11 | disposition home or self-care (01) ==
LOC: LAB.N 12:10
PROVIDERS: ATTEND Family Medicine
DX: L03.116 Cellulitis of left lower limb (principal); F30.8 Other manic episodes; J44.89 Other specified chronic obstructive pulmonary disease; F41.9 Anxiety disorder, unspecified; I10 Essential (primary) hypertension
CPT/HCPCS: 36415; 80050; 85651; 86140